=== PATIENT | female | born 1985 | race Caucasian/White ===

== ENCOUNTER 2018-07-06 18:52 | Emergency (ER) | payer MEDICAID ==
[~2018-07-06] VITALS: Ht 160 cm; Wt 65.0 kg
[~2018-07-06 18:52] MED LIST: MECL12.5 PO; NO HOME MEDS
[2018-07-06 19:10] VITALS: BP 107/78
== END 2018-07-06 20:35 | disposition home or self-care (01) ==
LOC: ER 18:53
DX: S80.01XA Contusion of right knee, initial encounter (principal); Z88.6 Allergy status to analgesic agent; Z88.8 Allergy status to other drugs, medicaments and biological substances; W22.8XXA Striking against or struck by other objects, initial encounter; Y93.89 Activity, other specified; Y92.89 Other specified places as the place of occurrence of the external cause; Y99.8 Other external cause status
CPT/HCPCS: 99281

== ENCOUNTER 2019-03-10 05:48 | Day surgery (SDC) | payer MEDICAID ==
[2019-03-09 17:35] LABS: BASOPHILS # (AUTO) 0.1 X10'3 (0-0.2); BASOPHILS % (AUTO) 0.9 % (0-1); EOSINOPHILS # (AUTO) 0.2 X10'3 (0-0.9); EOSINOPHILS % (AUTO) 2.9 % (0-6); LYMPHOCYTES # (AUTO) 1.9 X10'3 (1.1-4.8); MEAN CORPUSCULAR HEMOGLOBIN 29.7 PG (27.0-31.0); MEAN CORPUSCULAR VOLUME 87.3 FL (78-98); MEAN PLATELET VOLUME 9.6 FL (7.4-10.4); MONOCYTES # (AUTO) 0.2 X10'3 (0-0.9); MONOCYTES % (AUTO) 2.9 % (2-12); NEUTROPHILS # (AUTO) 5.4 X10'3 (1.8-7.7); NEUTROPHILS % (AUTO) 69.3 % (42-75); PRE OP HEMATOCRIT 39.1 % (35.0-45.0); PRE OP HEMOGLOBIN 13.3 g/dL (12.0-16.0); PRE OP PLATELET COUNT 196 X10'3 (140-440); RED BLOOD COUNT 4.49 X10'6 (4.20-5.60); RED CELL DISTRIBUTION WIDTH 13.9 % (11.5-14.5)
[2019-03-09 17:45] LABS: HCG SERUM QL NEGATIVE
[2019-03-10] VITALS (12 sets, daily range): BP systolic 88–106; BP diastolic 57–66
[~2019-03-10] VITALS: Ht 160 cm; Wt 63.8 kg
[~2019-03-10 05:48] MED LIST changes: +BEEF LIVER PO; +CHOL10002 PO; +CIDE600C PO; +CINN500C2 PO; +FLORIFY; +LICO1POW PO; +MASTIC GUM PO; -MECL12.5 PO; -NO HOME MEDS; +[UNRECOGNIZED DRUG - OTHER]; +[UNRECOGNIZED DRUG - OTHER] PO; +ceFAZolin 1GM/D5W- ADD-VANTAGE 50 ML IV ONE; +famotidine 20mg tablet PO ONE; +ringers solution, lacted 1,000 ML IV SCH
[2019-03-10] MEDS ORDERED: LIDOcaine 1% (10mg/ml) 2ml vial ONE (05:58)
[2019-03-10] MEDS ORDERED: BUPIVAcaine/PF 2.5mg/ml (0.25%) 10ml vial ONE (06:52)
[2019-03-10] MEDS ORDERED: propofol inj 20 ML IV ONE (07:37)
[2019-03-10] MEDS ORDERED: fentaNYL/PF 50MCG/1 ML 2ML syringe ONE (07:37)
[2019-03-10] MEDS ORDERED: midazolam 2 mg/2 ml injection ONE (07:37)
[2019-03-10] MEDS ORDERED: ringers solution, lacted 1,000 ML IV SCH (07:42)
[2019-03-10] MEDS ORDERED: meperidine/PF 25mg/ml syringe IV PRN ×3 (07:45)
[2019-03-10] MEDS ORDERED: morphine 4 MG/ML inj SYRINge IV PRN ×2 (07:45)
[2019-03-10] MEDS ORDERED: ondansetron/PF 4mg/2ml inj IV PRN (07:45)
[2019-03-10] MEDS ORDERED: proCHLORperazine 10 MG/2 ml inj IV PRN (07:45)
[2019-03-10] MEDS ORDERED: sevoflurane 250ml liquid IH ONE (08:01)
[2019-03-10] MEDS ORDERED: dexamethasone sod phosphate 4mg/ml inj. ONE (08:43)
[2019-03-10] MEDS ORDERED: ondansetron/PF 4mg/2ml inj ONE (08:43)
--- NOTE | 2019-03-10 08:45 | NUR ---
Received from OR via [facility], accompanied by Anesthesiologist DR LAST and report given by Anesthesiologist. PT VERY DROWSY, NO S/S OF DISTRESS/DISCOMFORT. RIGHT WRIST W/JUDIT WRAP COVERING DRSG, CDI, FINGERS PWD, BOTTLE FILLER 1-2 SECONDS. Addendum: 03/10/19 at 0914 by Kim Allen RN Amended: Links added.
== END 2019-03-10 10:25 | disposition home or self-care (01) ==
LOC: PAS 05:48
PROVIDERS: ATTEND Orthopaedic Surgery Hand Surgery
DX: M67.431 Ganglion, right wrist (principal); Z98.890 Other specified postprocedural states; Z87.19 Personal history of other diseases of the digestive system
CPT/HCPCS: 25111; 36415; 82948; 84703; 85025; A6222; J0690; J1100; J2250; J2405; J2704; J3010; J3490; J7120; A6449; A7000

== ENCOUNTER 2019-05-19 17:05 | Emergency (ER) | payer MEDICAID ==
[~2019-05-19] VITALS: Ht 160 cm; Wt 65.5 kg
[~2019-05-19 17:05] MED LIST changes: -ceFAZolin 1GM/D5W- ADD-VANTAGE 50 ML IV ONE; -famotidine 20mg tablet PO ONE; -ringers solution, lacted 1,000 ML IV SCH
[2019-05-19 17:38] VITALS: BP 102/69
[2019-05-19 19:00] LABS: BASOPHILS % (AUTO) 0.7 % (0-1); EOSINOPHILS # (AUTO) 0.2 X10'3 (0-0.9); EOSINOPHILS % (AUTO) 3.4 % (0-6); HEMATOCRIT 38.9 % (35.0-45.0); HEMOGLOBIN 12.9 g/dl (12.0-16.0); LYMPHOCYTES # (AUTO) 1.9 X10'3 (1.1-4.8); LYMPHOCYTES % (AUTO) 30.3 % (21-51); MEAN CORPUSCULAR HGB CONC 33.1 g/dL (33.0-36.5); MEAN CORPUSCULAR VOLUME 87.6 FL (78-98); MEAN PLATELET VOLUME 9.5 FL (7.4-10.4); MONOCYTES # (AUTO) 0.4 X10'3 (0-0.9); MONOCYTES % (AUTO) 5.8 % (2-12); NEUTROPHILS # (AUTO) 3.9 X10'3 (1.8-7.7); NEUTROPHILS % (AUTO) 59.8 % (42-75); PLATELET COUNT 215 X10'3 (140-440); RED BLOOD COUNT 4.44 X10'6 (4.20-5.60); RED CELL DISTRIBUTION WIDTH 13.6 % (11.5-14.5); WHITE BLOOD COUNT 6.4 X10'3 (4.5-11.0)
[2019-05-19 19:09] LABS: ALANINE AMINOTRANSFERASE 19 U/L (12-78); ALBUMIN 3.8 G/DL (3.4-5.0); ALBUMIN/GLOBULIN RATIO 1.2 (1.1-1.5); ALKALINE PHOSPHATASE 35 IU/L (46-116); ANION GAP 5 (8-16); ASPARTATE AMINO TRANSFERASE 13 U/L (10-37); BILIRUBIN,TOTAL 0.7 MG/DL (0.1-1.0); BLOOD UREA NITROGEN 10 MG/DL (7-18); BUN/CREATININE RATIO 12.8 (6.6-38.0); CALCIUM 8.9 MG/DL (8.5-10.1); CHLORIDE 107 MMOL/L (99-107); CREATININE 0.78 MG/DL (0.40-0.90); GLUCOSE 90 MG/DL (70-104); POTASSIUM 3.7 MMOL/L (3.5-5.1); SODIUM 140 MMOL/L (135-145); TOTAL CARBON DIOXIDE 28.1 MMOL/L (24-32); TOTAL PROTEIN 6.9 G/DL (6.4-8.2); eGFR 85 ML/MIN
[2019-05-19] MEDS ORDERED: AMOX-580 PO (19:33)
== END 2019-05-19 20:05 | disposition home or self-care (01) ==
LOC: ER 17:06
DX: S61.231A Puncture wound without foreign body of left index finger without damage to nail, initial encounter (principal); F32.9 Major depressive disorder, single episode, unspecified; Z98.890 Other specified postprocedural states; Z88.5 Allergy status to narcotic agent; Z88.8 Allergy status to other drugs, medicaments and biological substances; Z91.09 Other allergy status, other than to drugs and biological substances; Z79.899 Other long term (current) drug therapy; W55.01XA Bitten by cat, initial encounter; Y93.89 Activity, other specified; Y92.89 Other specified places as the place of occurrence of the external cause; Y99.8 Other external cause status
CPT/HCPCS: 36415; 80053; 85025; 99283

== ENCOUNTER 2021-07-20 16:31 | Emergency (ER) | payer MEDICAID | END 2021-07-20 19:26 | disposition left against medical advice (07) | LOC: ER 16:31 | DX: T78.40XA Allergy, unspecified, initial encounter (principal); Z53.21 Procedure and treatment not carried out due to patient leaving prior to being seen by health care provider; X58.XXXA Exposure to other specified factors, initial encounter ==

== ENCOUNTER 2022-12-19 18:26 | Emergency (ER) | payer MEDICAID ==
[~2022-12-19] VITALS: Ht 160 cm; Wt 68.2 kg
[2022-12-19] MEDS ORDERED: acetaminophen 325mg tablet PO ONE (18:55)
[2022-12-19 19:23] LABS: BASOPHILS % (AUTO) 0.5 % (0-1); EOSINOPHILS % (AUTO) 0.5 % (0-6); HEMATOCRIT 38.5 % (35.0-45.0); HEMOGLOBIN 13.1 g/dl (12.0-16.0); LYMPHOCYTES # (AUTO) 0.4 X10'3 (1.1-4.8); MEAN CORPUSCULAR HEMOGLOBIN 30.6 PG (27.0-31.0); MEAN CORPUSCULAR VOLUME 90.1 FL (78-98); MEAN PLATELET VOLUME 8.3 FL (7.4-10.4); MONOCYTES # (AUTO) 0.1 X10'3 (0-0.9); NEUTROPHILS # (AUTO) 6.3 X10'3 (1.8-7.7); PLATELET COUNT 168 X10'3 (140-440); RED BLOOD COUNT 4.27 X10'6 (4.20-5.60); RED CELL DISTRIBUTION WIDTH 13.6 % (11.5-14.5); WHITE BLOOD COUNT 6.8 X10'3 (4.5-11.0)
[2022-12-19 19:33] LABS: ALANINE AMINOTRANSFERASE 37 U/L (12-78); ALBUMIN 4.1 G/DL (3.4-5.0); ALBUMIN/GLOBULIN RATIO 1.2 (1.1-1.5); ALKALINE PHOSPHATASE 72 IU/L (46-116); ANION GAP 9 (8-16); ASPARTATE AMINO TRANSFERASE 31 U/L (10-37); BILIRUBIN,TOTAL 1.5 MG/DL (0.1-1.0); BLOOD UREA NITROGEN 12 MG/DL (7-18); BUN/CREATININE RATIO 13.8 (6.6-38.0); CALCIUM 8.8 MG/DL (8.5-10.1); CHLORIDE 102 MMOL/L (99-107); CREATININE 0.87 MG/DL (0.40-0.90); GLUCOSE 103 MG/DL (70-104); POTASSIUM 3.4 MMOL/L (3.5-5.1); SODIUM 137 MMOL/L (135-145); TOTAL CARBON DIOXIDE 25.6 MMOL/L (24-32); TOTAL PROTEIN 7.5 G/DL (6.4-8.2); eGFR 73 ML/MIN
[2022-12-19] MEDS ORDERED: ketorolac trometh. 30mg/ml inj. IV ONE (19:40)
[2022-12-19] MEDS ORDERED: CefTRIAXone 2gm/D5W 50ml BAG 50 ML IV ONE (19:40)
[2022-12-19] MEDS ORDERED: hydrOXYzine 10 MG tablet PO ONE (19:40)
[2022-12-19] MEDS ORDERED: proCHLORperazine 10 MG/2 ml inj IV ONE (19:40)
[2022-12-19] MEDS ORDERED: normal saline 1000ml 1,000 ML IV ONE ×2 (19:50→21:35)
--- NOTE | 2022-12-19 20:35 | NUR ---
pt refusing flu test. dr rodrigues notified.
[2022-12-19 21:41] LABS: ETHANOL < 0.010 GM/DL (0.0-0.010)
[2022-12-19 23:53] LABS: CLARITY,URINE CLOUDY (Clear); COLOR,URINE YELLOW (Yellow); GLUCOSE, URINE NEGATIVE (Neg); KETONES,URINE TRACE mg/dl (Neg); LEUKOCYTE ESTERASE ,URINE MODERATE (Neg); NITRITES, URINE POSITIVE (Neg); OCCULT BLOOD,URINE LARGE (Neg); PROTEIN,URINE NEGATIVE (Neg); UA COLLECTION TYPE CLN CATCH MIDSTREAM; UROBILINOGEN,URINE 0.2 E.U/dL (0.2-1.0)
[2022-12-20 00:01] LABS: URINE AMPHETAMINE SCREEN NEGATIVE (Neg); URINE BARBITUATE SCREEN NEGATIVE (Neg); URINE BENZODIAZEPINES SCREEN POSITIVE (Neg); URINE CANNABINOID SCREEN NEGATIVE (Neg); URINE COCAINE SCREEN NEGATIVE (Neg); URINE METHADONE SCREEN NEGATIVE (Neg); URINE OPIATE SCREEN NEGATIVE (Neg); URINE PHENCYCLIDINE SCREEN NEGATIVE (Neg)
--- NOTE | 2022-12-20 00:02 | NUR ---
ASSESSMENT REVIEWED FOR Anjum SILVEIRA
[2022-12-20 00:09] LABS: RBC,URINE TNTC /HPF (0-2); WBC,URINE 20-30 /HPF (0-4)
[2022-12-20 00:10] LABS: BACTERIA,URINE 1+ /HPF (Neg); MUCUS STRANDS NONE SEEN /LPF (Neg); SQUAMOUS EPITHELIAL CELL,UR FEW /LPF (FEW)
[2022-12-20] MEDS ORDERED: CEPH500C2 PO (00:47)
[2022-12-20 01:17] VITALS: BP 79/45
== END 2022-12-20 01:20 | disposition home or self-care (01) ==
LOC: ER 18:26
DX: N39.0 Urinary tract infection, site not specified (principal); Z20.822 Contact with and (suspected) exposure to COVID-19; R11.0 Nausea; R51.9 Headache, unspecified; Z91.09 Other allergy status, other than to drugs and biological substances; Z88.5 Allergy status to narcotic agent
CPT/HCPCS: 36415; 80053; 80305; 80320; 81001; 83605; 84145; 85025; 87040; 87088; 87635; 96365; 96375; 99285; C9803; J0696; J0780; J1885; J7030

== ENCOUNTER → 2024-04-28 | Outpatient (CLI) | payer MEDICAID | END | disposition home or self-care (01) | LOC: RAD 04-18 12:57 | PROVIDERS: ATTEND Student in an Organized Health Care Education/Training Program | DX: M54.9 Dorsalgia, unspecified (principal) | CPT/HCPCS: 72074; 72110 ==